=== PATIENT | female | born 1990 | race Caucasian/White ===

== ENCOUNTER 2018-05-09 07:37 | Day surgery (SDC) | payer OTHER ==
[~2018-05-09 07:37] MED LIST: ACETAMINOPHEN 1,000 MG/100 ML BTL IV ONE; CEFAZOLIN 2 Gram 2 GM/50 ML BAG IVPB ONE; FAMOTIDINE 20MG TABLET PO ONE; MECLIZINE 25 MG TABLET PO ONE; METOCLOPRAMIDE 10 MG TABLET PO ONE
[2018-05-09] MEDS ORDERED: PROPOFOL 10 MG/ML VIAL IV ONE (07:38)
[2018-05-09] MEDS ORDERED: BUPIVACAINE 0.25% MPF 30ML VIAL IVP ONE (07:38)
[2018-05-09] MEDS ORDERED: SEVOFLURANE 250 ML INH ONE (07:38)
[2018-05-09] MEDS ORDERED: HYDROCODONE/APAP 5/325MG TABLET PO ONE (07:38)
[2018-05-09] MEDS ORDERED: SUCCINYLCHOLINE 20 MG/ML 10ML IVP ONE (07:38)
[2018-05-09] MEDS ORDERED: LIDOCAINE 2% MDV (20MG/ML) 20ML VIAL IV ONE (07:38)
[2018-05-09] MEDS ORDERED: ROCURONIUM BROMIDE 50MG/5ML VIAL IV ONE (07:38)
[2018-05-09] MEDS ORDERED: HYDROMORPHONE HCL 2 MG/ML VIAL IV ONE (07:38)
[2018-05-09] MEDS ORDERED: ONDANSETRON HCL IV 4 MG/2 ML VIAL IVP ONE (07:38)
[2018-05-09] MEDS ORDERED: FENTANYL PF 100MCG/2ML VIAL IV ONE ×2 (07:38)
[2018-05-09] MEDS ORDERED: KETOROLAC 30 MG/ML VIAL IVP ONE (07:38)
[2018-05-09 07:59] LABS: BASO % 0.4 % (0-6); EOS % 2.3 % (0-6); GRAN % 43.1 % (47-80); HEMATOCRIT 39.2 % (35.0-47.0); LYMPH % 46.4 % (16-45); MEAN CELL VOLUME 84.7 fl (81-97); MEAN CORPUSCULAR HEMOGLOBIN 28.1 pg (27-33); MEAN CORPUSCULAR HGB CONC 33.2 g/dl (32-36); MEAN PLATELET VOLUME 11.6 fl (7.4-10.4); MONO % 7.8 % (0-9); PLATELET COUNT 292 K/uL (130-400); RED BLOOD COUNT 4.63 M/uL (3.80-5.40); RED CELL DISTRIBUTION WIDTH 12.5 % (11.5-14.5); WHITE BLOOD COUNT W/O DIFF 5.7 K/uL (4.2-12.2)
[2018-05-09 08:13] LABS: BLOOD UREA NITROGEN 12 mg/dL (6-20); CREATININE 0.9 mg/dL (0.5-0.9); EST GLOMERULAR FILTRATION RATE > 60 mL/min; GLUCOSE,RANDOM 90 mg/dL (74-109)
--- NOTE | 2018-05-10 11:01 | Operative Note ---
DATE OF SURGERY: 05/09/2018 Surgeon: Nura Haley DO PREOPERATIVE DIAGNOSES: 1. Incarcerated umbilical hernia. 2. Elective sterilization. POSTOPERATIVE DIAGNOSES: 1. Incarcerated umbilical hernia. 2. Elective sterilization. OPERATION: 1. Open umbilical herniorrhaphy for incarcerated hernia. 2. Laparoscopic tubal ligation. Indication: The patient is a 27-year-old female who had pain around her periumbilical region. She was seen in the ER where a CT scan was done. This did show findings consistent with incarcerated umbilical hernia. We did discuss repair of this. During our discussion, she did discuss desired sterilization as well. Risks, benefits, and alternatives were discussed. Risks include bleeding, infection, acute or chronic pain, recurrence, injury to surrounding visceral structures. She understood this fully. PROCEDURE: Thereafter, consent was signed and questions answered. She was taken to the operating room and placed in a supine position. General anesthesia was administered per the department of anesthesia. The patient's right arm was tucked to the side. Her abdomen was prepped and draped in the usual fashion. At this time, a curvilinear supraumbilical incision was made. This was carried down to the anterior rectus fascia. The umbilicus stalk was encircled and dissected free from underlying hernia sac. Clean circumferential fascial edges were obtained. The hernia measured about 8 mm. At this time, a blunt Cristina port was placed through this. Adequate pneumoperitoneum was established. The patient was rotated into a steep Trendelenburg position. Additional 5 mm ports were placed at either side of the navel. The pelvis was identified. We did use a 10 mm angled lens. The left-sided fallopian tube was identified. This was grasped and clipped proximally and distally with Hem-o-vivi clips. The middle was transected with Hong harmonic. Identical procedure was done on the opposite side. At this time, patient leveled out. A 5 mm lens was placed through the 5 mm port. A 6.[address] mesh was obtained and placed in intraperitoneal position. Upper skirt was then tacked to the anterior rectus fascia. Pneumoperitoneum was released. All ports removed. The hernia was then repaired with the aforementioned 6.[address] mesh. This was sutured in place in 6 spots. The skin was tacked down to the fascia with 3-0 Vicryl. Skin was closed with 3-0 and 4-0 Vicryl. The patient was taken to the recovery room in satisfactory condition. FINDINGS ON SURGERY: Incarcerated umbilical hernia repaired as above accompanied with elective sterilization. CC: Dr. Refugio FAUST
== END 2018-05-09 12:24 | disposition home or self-care (01) ==
LOC: SUR 07:37
PROVIDERS: ATTEND Surgery
DX: K42.0 Umbilical hernia with obstruction, without gangrene (principal); Z30.2 Encounter for sterilization; J44.9 Chronic obstructive pulmonary disease, unspecified; J45.909 Unspecified asthma, uncomplicated
CPT/HCPCS: 49587; 58671; 00750; 85025; 80048; 81025; J1885; J2405; J3010; J1170; J0690; J0330